=== PATIENT | male | born 1980 ===

== ENCOUNTER 2020-05-19 10:43 | Outpatient (CLI) | payer BC ==
[2020-05-19 11:19] LABS: Eosinophils # (Auto) 0.4 K/mm3 (0.0-0.4); Monocytes # (Auto) 0.4 K/mm3 (0.0-0.8)
[2020-05-19 11:21] LABS: Bilirubin,Urine NEG (Negative); Blood,Urine NEG (Negative); Color,Urine Yellow (Yellow); Mucus,Urine FEW /HPF; Protein,Urine <15 mg/dL mg/dL (Negative); RBC,Urine < 1.0 /HPF (0.0-6.0); Urobilinogen,Urine < 2.0 mg/dL (<2.0)
[2020-05-19 11:32] LABS: Hematocrit 47.9 % (35.5-45.6); Hemoglobin 16.9 gm/dl (11.8-15.2); Mean Corpuscular HGB Conc 35 % (32-34); Mean Corpuscular Volume 88 fl (84-94); Platelet Count 223 K/mm3 (140-440); Red Blood Count 5.44 M/mm3 (3.65-5.03)
[2020-05-19 11:34] LABS: Basophils % (Auto) 1.3 % (0.0-1.8); Lymphocytes # (Auto) 2.8 K/mm3 (1.2-5.4); Lymphocytes % (Auto) 45.2 % (13.4-35.0); Monocytes % (Auto) 6.3 % (0.0-7.3)
[2020-05-19 11:35] LABS: Basophils # (Auto) 0.1 K/mm3 (0.0-0.1)
[2020-05-19 12:05] LABS: Alanine Aminotransferase 38 units/L (7-56); Albumin 4.3 g/dL (3.9-5); BUN/Creatinine Ratio 13; Blood Urea Nitrogen 12 mg/dL (9-20); Calcium 9.3 mg/dL (8.4-10.2); Chol/HDL Ratio 4.51 %; HDL Cholesterol 39 mg/dL (40-59); LDL Cholesterol,Direct 118 mg/dL (50-130)
[2020-05-19 12:06] LABS: Hemolysis Index 6
[2020-05-22 16:02] LABS: Vitamin D, 25-OH, D2 <4 ng/mL
== END 2020-05-19 10:44 | disposition home or self-care (01) ==
LOC: LAB 10:43
PROVIDERS: ATTEND Internal Medicine
DX: Z00.00 Encounter for general adult medical examination without abnormal findings (principal); Z13.220 Encounter for screening for lipoid disorders; Z13.29 Encounter for screening for other suspected endocrine disorder; E56.9 Vitamin deficiency, unspecified; R39.11 Hesitancy of micturition
CPT/HCPCS: 36415; 80053; 80061; 81001; 82306; 83036; 84153; 84443; 85025